=== PATIENT | female | born 1970 | race Caucasian/White ===

== ENCOUNTER → 2017-03-12 | Outpatient (CLI) | payer BC ==
[~2017-03-12] MED LIST: BACTRIM DS 8001 TAB PO; BACTRIM DS TAB1 EACH PO; DILAUDID4 MG PO; ETODOLAC200 MG PO; HABITROL21 MG/24 H TD; IBUPROFEN600 MG PO; LEVOTHYROXIN0.025 M3 PO; PYRIDIUM 200MG200 MG PO; VENLAFAXINE HY150 MG PO
--- NOTE | 2017-03-12 19:58 | RADIOLOGY REPORT PS360 ---
EXAM: CERVICAL SPINE 4 OR 5 VIEWS HISTORY: Neck pain PAIN ORDERING PHYSICIAN: Effie Carroll MD PATIENT AGE: 46 years COMPARISON: None FINDINGS: Normal alignment. No fracture or dislocation. No lytic or blastic change. There has been a prior anterior cervical disc fusion at C5, C6, and C7 with anterior fixation screws, anterior bone plate, and disc spacer device. There is minimal retrolisthesis of C5 on C6 of 2 mm with minimal posterior osteophyte. There is mild bilateral foraminal narrowing at C4-5 and moderate bilateral foraminal narrowing at C5-C6 from endplate and uncovertebral hypertrophy. IMPRESSION: 1. Prior anterior cervical disc fusion C5-C6 and C6-C7 2. Moderate to severe right foraminal narrowing and moderate left foraminal narrowing at C5-6 with mild bilateral foraminal narrowing at C4-C5
== END ==
LOC: RAD 18:05
DX: M54.2 Cervicalgia (principal)